=== PATIENT | male | born 1990 | race Caucasian/White ===

== ENCOUNTER 2019-04-29 22:03 | Emergency (ER) | payer OTHER ==
[2019-04-29] MEDS ORDERED: TETANUS & DIPHTHERIA TOX,ADULT 0.5 ML VIAL ONE (22:36)
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
[2019-04-29 23:17] VITALS: TEMP 98.5
[2019-04-29 23:18] VITALS: BP 114/87; O2SAT 98
== END 2019-04-29 23:11 | disposition home or self-care (01) ==
LOC: ER 22:03
DX: T23.502A Corrosion of first degree of left hand, unspecified site, initial encounter (principal); T54.2X1A Toxic effect of corrosive acids and acid-like substances, accidental (unintentional), initial encounter; T32.0 Corrosions involving less than 10% of body surface; Z57.5 Occupational exposure to toxic agents in other industries; Y93.89 Activity, other specified; Y92.89 Other specified places as the place of occurrence of the external cause; Y99.0 Civilian activity done for income or pay; Z23 Encounter for immunization
CPT/HCPCS: 90471; 90714; 99284